=== PATIENT | male | born 2000 | race African-American/Black ===

== ENCOUNTER 2022-08-13 13:05 | Emergency (ER) | payer OTHER, SELFPAY ==
[2022-08-13 13:25] VITALS: BP 125/64; PULSE 82; RESP 20; TEMP 36.8; O2SAT 99; BMI 24.7
--- NOTE | 2022-08-13 13:29 | ED_ITS ---
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. He has been stationed here for almost a year. He has been active duty for several years. He is a E-5. Lives out of town by himself. Is here for evaluation of having both visual and auditory hallucinations and also alcohol abuse. Patient states that he had a walk-in visit this morning with a mental health provider. He carries no spec [facility] mental health diagnosis. Takes no medications. Has not seen a counselor in the past. He went today to speak with somebody because he admits to having an increase in his drinking over the past 3 days. He states he drank 1/2 of a 5th yesterday in an entire 5th the day before that. He states this increase was because his grandfather , his sister had a miscarriage and there was another to a close friend. All this was been within the past couple days. He states that the voices that he is hearing have also increased. He admits that he has heard voices since he entered the but he admits that he did not think much of them. He states that the voices describe ways of using objects around him to try to kill him. He states he has no specific desire to kill himself. He also states that he occasionally sees things. It is worse at night. The things that he sees he describes as people but can not specifically state who that individual is. He denies any other drug use. Denies any other medical problems. Has not tried anything for the symptoms prior to arrival. Related Data Allergies Allergy/AdvReac Type Severity Reaction Status Date / Time No Known Drug Allergies Allergy Verified 08/13/22 13:30 Review of Systems Review of Systems ROS Unobtainable: All systems reviewed & are unremarkable except as noted in HPI and below Patient History Medical History Patient denies medical problems Social History Smoking Status: Never smoker Smoking Status: Never smoker alcohol intake frequency: 3 or more drinks per day Alcohol type: hard liquor Substance Use Type: does not use Exam Initial Vital Signs Initial Vital Signs: Vital Signs Temperature 98.2 F 08/13/22 13:25 Pulse Rate 82 08/13/22 13:25 Respiratory Rate 20 08/13/22 13:25 Blood Pressure 125/64 08/13/22 13:25 Pulse Oximetry 99 08/13/22 13:25 Oxygen Delivery Method 08/13/22 13:25 Const General: cooperative, anxious and No ill appearing HENMT Head: normal to inspection and normocephalic Eyes General: Yes appearance normal, both eyes and all related structures Resp Effort & Inspection: normal respiratory effort Auscultation: clear to auscultation bilaterally Cardio Rate: regular rate Rhythm: regular rhythm GI Inspection: normal to inspection Palpation: soft and No tender Skin General: no rashes or lesions noted Neuro General: patient alert, patient awake, patient oriented x3 and moves all extremities Speech: speech normal Motor: muscle tone normal throughout Extrem General: normal to inspection and capillary refill normal Psych Other: Patient occasionally looks off to the side and looks up and appears to be responding to internal stimuli. He is cooperative. Does have shaking. Is anxious. Not suicidal. Not homicidal. Does admit to auditory and visual hallucinations. Scores GCS Le coma scale eye opening: Spontaneous Le coma scale verbal response: Orientated Le coma scale motor response: Obey commands Howland coma scale total score: 15 Course Orders Ordered: ED Orders 08/13/22 13:32 Consult to FLOOR COVERING INSTALLER - Filtration Operator Stat 08/13/22 14:30 Urine Drug Screen, Rapid Stat 08/13/22 14:35 COVID19 -Nasal RAPID/Pre-Proc Stat 08/13/22 14:45 Acetaminophen Stat Complete Blood Count AUTO DIFF Stat Comprehensive Metabolic Panel Stat Ethanol (ETOH) Stat Lipase Stat Salicylate Stat Thyroid Stimulating Hormone Stat Discontinued Medications Acetaminophen (Acetaminophen 325 Mg Tablet) 650 mg PO NOW ONE Stop: 08/13/22 15:56 Lorazepam (Lorazepam 0.5 Mg Tablet) 1 mg PO NOW ONE Stop: 08/13/22 13:32 Last Admin: 08/13/22 13:50 Dose: 1 mg Documented By: NR Vital Signs Vital signs: Vital Signs - 8 hr 08/13/22 13:25 Temperature 98.2 F Pulse Rate 82 Respiratory Rate 20 Blood Pressure 125/64 Pulse Oximetry 99 Oxygen Delivery Method Room Air MDM - Psych Lab Data Attestation: I reviewed the patient's lab results. Result diagrams: 08/13/22 14:45 08/13/22 14:45 Labs: Lab Results 08/13/22 08/13/22 08/13/22 Range/Units 14:30 14:35 14:45 WBC 5.5 (4.5-11.0) X10^3/uL RBC 5.30 (4.5-5.9) X10^6/uL Hgb 14.1 (13.5-17.5) g/dL Hct 42.9 (41-53) % MCV 80.9 (80-100) fL MCH 26.6 (26-34) PG MCHC 32.9 (30-36) % RDW 13.1 (11.6-14.8) % Plt Count 329 (150-400) X10^3/uL Neut % (Auto) 44.2 L (50-75) % Lymph % (Auto) 42.8 H (25-40) % Jay % (Auto) 9.8 (3-14) % Eos % (Auto) 2.1 (2-4) % Baso % (Auto) 1.1 (0-2) % Neut # (Auto) 2400 (2839-3629) /uL Lymph # (Auto) 2400 (1284-6047) /uL Jay # (Auto) 500 (0-900) /uL Eos # (Auto) 100 (0-450) /uL Baso # (Auto) 100 (0-100) /uL Sodium (137-145) mmol/L Potassium (3.4-5.1) mmol/L Chloride (98-107) mmol/L Carbon Dioxide (22-32) mmol/L BUN (9-20) mg/dL Creatinine (0.66-1.25) mg/dL Estimated GFR (>60) mL/min BUN/Creatinine Ratio (6-22) Glucose (70-100) mg/dL Calcium (8.4-10.2) mg/dL Total Bilirubin (0.2-1.3) mg/dL AST (17-59) IU/L ALT (<50) IU/L Alkaline Phosphatase (38-126) U/L Total Protein (6.3-8.2) g/dL Albumin (3.5-5.0) g/dL Globulin (1.7-4.1) g/dL Albumin/Globulin Ratio (1.0-2.8) Lipase (23-300) U/L TSH (0.47-4.68) uIU/mL Salicylates (<20) mg/dL U Opiates 300ng/mL cut Negative (Negative) Ur Oxycodone Screen Negative (Negative) Urine Methadone Screen Negative (Negative) Acetaminophen (10-30) ug/mL Ur Barbiturates Screen Negative (Negative) U Tricyclic Antidepress Negative (Negative) Ur Phencyclidine Scrn Negative (Negative) Ur Amphetamines Screen Negative (Negative) U Methamphetamines Scrn Negative (Negative) Ur MDMA Scrn (Ecstasy) Negative (Negative) U Benzodiazepines Scrn Negative (Negative) Urine Cocaine Screen Negative (Negative) U Marijuana (THC) Screen Negative (Negative) Ethyl Alcohol ( - 10) mg/dL SARS-CoV-2 (PCR) Negative (Negative) 08/13/22 08/13/22 08/13/22 Range/Units 14:45 14:45 14:45 WBC (4.5-11.0) X10^3/uL RBC (4.5-5.9) X10^6/uL Hgb (13.5-17.5) g/dL Hct (41-53) % MCV (80-100) fL MCH (26-34) PG MCHC (30-36) % RDW (11.6-14.8) % Plt Count (150-400) X10^3/uL Neut % (Auto) (50-75) % Lymph % (Auto) (25-40) % Jay % (Auto) (3-14) % Eos % (Auto) (2-4) % Baso % (Auto) (0-2) % Neut # (Auto) (0583-1146) /uL Lymph # (Auto) (2690-3690) /uL Jay # (Auto) (0-900) /uL Eos # (Auto) (0-450) /uL Baso # (Auto) (0-100) /uL Sodium 138 (137-145) mmol/L Potassium 3.6 (3.4-5.1) mmol/L Chloride 102 (98-107) mmol/L Carbon Dioxide 29 (22-32) mmol/L BUN 10 (9-20) mg/dL Creatinine 0.95 (0.66-1.25) mg/dL Estimated GFR > 60 (>60) mL/min BUN/Creatinine Ratio 10.5 (6-22) Glucose 94 (70-100) mg/dL Calcium 9.0 (8.4-10.2) mg/dL Total Bilirubin 0.5 (0.2-1.3) mg/dL AST 37 (17-59) IU/L ALT 47 (<50) IU/L Alkaline Phosphatase 64 (38-126) U/L Total Protein 7.4 (6.3-8.2) g/dL Albumin 4.2 (3.5-5.0) g/dL Globulin 3.2 (1.7-4.1) g/dL Albumin/Globulin Ratio 1.3 (1.0-2.8) Lipase 77 (23-300) U/L TSH 1.28 (0.47-4.68) uIU/mL Salicylates < 1.0 (<20) mg/dL U Opiates 300ng/mL cut (Negative) Ur Oxycodone Screen (Negative) Urine Methadone Screen (Negative) Acetaminophen < 10 (10-30) ug/mL Ur Barbiturates Screen (Negative) U Tricyclic Antidepress (Negative) Ur Phencyclidine Scrn (Negative) Ur Amphetamines Screen (Negative) U Methamphetamines Scrn (Negative) Ur MDMA Scrn (Ecstasy) (Negative) U Benzodiazepines Scrn (Negative) Urine Cocaine Screen (Negative) U Marijuana (THC) Screen (Negative) Ethyl Alcohol < 10 ( - 10) mg/dL SARS-CoV-2 (PCR) (Negative) [facility] Narrative Medical decision making narrative: Patient admits to both auditory and visual hallucinations however it appears that the auditory hallucinations are more disturbing. They are command hallucinations that do talk about hurting himself. He is had these for a couple years but worsening over the past couple days most likely because of his alcohol intake. He did have some shaking upon arrival. This improved some Ativan. Is given Tylenol for headache. No vomiting. Patient is medically cleared. I do feel that he would benefit from admission to the hospital patient is voluntary. Patient is stable. Discussed the case with Dr. Rincon at [facility] who accepts the patient in transfer. Will transfer by BLS. Discharge Plan Departure Patient Disposition: Xfer Psychiatric Hosp Clinical Impression: Auditory hallucination, Visual hallucinations
[2022-08-13] MEDS: LORazepam 0.5 MG TABLET 1 MG PO (13:50)
[2022-08-13 14:56] LABS: Add Manual Diff / Slide Review NO; Basophils Absolute Auto 100 /uL (0-100); Basophils Percent Auto 1.1 % (0-2); Eosinophils Absolute Auto 100 /uL (0-450); Eosinophils Percent Auto 2.1 % (2-4); Hematocrit 42.9 % (41-53); Hemoglobin 14.1 g/dL (13.5-17.5); Lymphocytes Absolute Auto 2400 /uL (1100-4500); Lymphocytes Percent Auto 42.8 % (25-40); Mean Corpuscular HGB Conc 32.9 % (30-36); Mean Corpuscular Hemoglobin 26.6 PG (26-34); Mean Corpuscular Volume 80.9 fL (80-100); Monocytes Absolute Auto 500 /uL (0-900); Monocytes Percent Auto 9.8 % (3-14); Neutrophils Absolute Auto 2400 /uL (1500-7000); Neutrophils Percent Auto 44.2 % (50-75); Platelet Count 329 X10^3/uL (150-400); Red Cell Distribution Width 13.1 % (11.6-14.8); White Blood Cell Count 5.5 X10^3/uL (4.5-11.0)
[2022-08-13 15:03] LABS: Acetaminophen < 10 ug/mL (10-30); Alanine Aminotransferase 47 IU/L (<50); Albumin 4.2 g/dL (3.5-5.0); Albumin Globulin Ratio 1.3 (1.0-2.8); Alkaline Phosphatase 64 U/L (38-126); Aspartate Aminotransferase 37 IU/L (17-59); BUN Creatinine Ratio 10.5 (6-22); Bilirubin Total 0.5 mg/dL (0.2-1.3); Blood Urea Nitrogen 10 mg/dL (9-20); Carbon Dioxide 29 mmol/L (22-32); Chloride 102 mmol/L (98-107); Estimated Glomerular Filt Rate > 60 mL/min (>60); Globulin 3.2 g/dL (1.7-4.1); Glucose 94 mg/dL (70-100); HEMOLYSIS < 15 (0-50); Potassium 3.6 mmol/L (3.4-5.1); Sodium 138 mmol/L (137-145); Total Protein 7.4 g/dL (6.3-8.2)
[2022-08-13 15:04] LABS: Ethanol (ETOH) < 10 mg/dL; Lipase 77 U/L (23-300); Salicylate < 1.0 mg/dL (<20)
[2022-08-13 15:07] LABS: COVID19 -Nasal RAPID Negative (Negative)
[2022-08-13 15:16] LABS: UR Morphine/Opiate cutoff 300 Negative (Negative); Ur Creatinine Normal (Normal); Ur Specific Gravity Normal (Normal); Urine Amphetamines Negative (Negative); Urine Barbiturates Negative (Negative); Urine Benzodiazepines Negative (Negative); Urine Cocaine Negative (Negative); Urine MDMA Negative (Negative); Urine Methadone Negative (Negative); Urine Methamphetamines Negative (Negative); Urine Oxycodone Negative (Negative); Urine Phencyclidine Negative (Negative); Urine Tetrahydrocannabinol Negative (Negative); Urine Tricyclic Antidepressant Negative (Negative); Urine pH Normal (Normal)
--- NOTE | 2022-08-13 15:55 | CM.SWNOTE ---
Addendum entered by BYRON Fontanez 08/13/22 15:56: Pt is 22 year old male who presents with command auditory hallucinations and alcohol use disorder. 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 Pt reports that the voices happen when he is sober and when under the influence of alcohol. Per pt, voices berate him and at times tell him to hurt himself. Pt states, they are creative about what is around me, like this IV pole could fall and go through my eye or that light figure could fall on me and electrocute me. Pt reports that he does not know how to naturally emote and that he copies what he sees from other people around him. PT reports that he rarely feels genuine emotion. Pt reports that he has no true supports close by, little interest in social interaction, and increasing isolation. Pt reports that he drinks alone. 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 SW and ED Provider discuss recommendation with pt and he eventually agrees to plan. Plan: Initiate transfer to [facility] for inpatient psychiatric stabilization. BYRON Fontanez Original Note: [employer] - Visual Basic Programmer Assessment [employer] - Visual Basic Programmer Assessment Start: 08/13/22 15:09 Freq: Status: Active Protocol: Document 08/13/22 15:09 (Rec: 08/13/22 15:47 TM [id number]) TATTOO ARTIST/Visual Basic Programmer Assessment Time Spent with Patient Start date 08/13/22 Visit Start Time 14:00 End date 08/13/22 Visit End Time 15:00 Mental Health Screening Include Onset, Duration, Intensity Presenting Problem Pt presents with auditory hallucinations that are at times command hallunications telling pt to hurt himself. Pt reports heavy drinking over last 26 days. Generally a fifth of rum a day. Precipitating Event(s) Pt reports the recent of his grandfather and a lot of deaths in the family. Pt reports that his drinking has increased over the last month and he recently gambled away a significant amount of money. Pt states, I drink when I am sad, angry, when I want to quiet the voices, and when I want to forget it all. Current Behavioral Health Provider(s) None. Pt saw behavioral health Include Facility, Provider, Ph. # clinician today at the [facility] and they sent him to this ED. Psych. Hx Mental Health and Chemical Pt reports heavy drinking, Dependency approximately one bottle of hard liquor a day. Pt reports that his drinking has increased since learning of his grandfather's . Pt reports no formal mental health diagnoses but endorses both auditory and visual hallunications. Family Hx of Behavioral Abuse Pt denies family history of mental illness, or suicide attempts. Psychiatric Hospitalizations (date(s)/ Pt denies. location) Psychosocial information & Support none. Systems School/Work Pt is in the [employer]. Pt enlisted at age 17. Substance Abuse Screening Include Onset, Duration, Intensity Presenting Problem Pt drinking approximately one fifth of hard liquor daily for about 26 days. Precipitating Event(s) Pt reports the recent of his grandfather and a lot of deaths in the family. Pt reports that his drinking has increased over the last month and he recently gambled away a significant amount of money. Pt states, I drink when I am sad, angry, when I want to quiet the voices, and when I want to forget it all. Current Behavioral Health Provider(s) none. Include Facility, Provider, Ph. # Family Hx of Behavioral Abuse pt denies. Rehab Facilities? ((Date(s), Location(s) none. ) History of Withdrawal? Seizures? Pt reports history of withdrawals but denies seizures. Pt reports feeling shakey, jumpy, and hyper alert during withdrawals from alcohol. School/Work [employer]. Legal Concerns Legal Matters - Outstanding Issues none.
[2022-08-13 15:56] LABS: Thyroid Stimulating Hormone 1.28 uIU/mL (0.47-4.68)
[2022-08-13 20:18] VITALS: BP 126/81; PULSE 73; RESP 16; TEMP 36.4; O2SAT 100
== END 2022-08-13 20:19 ==
PROVIDERS: Emergency Provider Emergency Medicine
DX: R44.0 Auditory hallucinations (principal); R44.1 Visual hallucinations; Z20.822 Contact with and (suspected) exposure to COVID-19
CPT/HCPCS: 80053; 80305; 80320; 80329; 83690; 84443; 85025; 87635; 99283; C9803; G0480

== ENCOUNTER 2023-04-28 16:47 | Emergency (ER) | payer OTHER, SELFPAY ==
[2023-04-28 16:49] VITALS: BP 133/67; PULSE 85; RESP 18; TEMP 36.9; O2SAT 98; BMI 24.7
[2023-04-28] MEDS: ACETAMINOPHEN 325 MG TABLET 650 MG PO (17:12)
[2023-04-28] MEDS: KETOROLAC 30 MG/ML VIAL IM (17:12)
[2023-04-28 19:15] VITALS: BP 128/79; PULSE 76; RESP 18; O2SAT 100
--- NOTE | 2023-04-28 19:19 | CM.SWNOTE ---
BROADCAST OPERATIONS ENGINEER Assessment BROADCAST OPERATIONS ENGINEER - Fondant Puff Maker Assessment BROADCAST OPERATIONS ENGINEER/Fondant Puff Maker Assessment Time Spent with Patient Start date 04/28/23 Visit Start Time 18:05 End date 04/28/23 Visit End Time 18:45 Total time Care Management spent on 40 minutes patient visit-in minutes Mental Health Screening Include Onset, Duration, Intensity Presenting Problem Patient presents to ED via EMS per recommendation from [facility] provider. Patient has been experiencing increase in Panic attacks, visual and auditory hallucinations, anger and headaches. Patient endorses he sees figments doing terrible things and hears whispers and ruminations of things he could or should do regarding and attacking people. Patient denies HI and SI. Precipitating Event(s) Patient denies any recent precipitating events, and denies any changes. Patient endorses trouble sleeping and eating. Patient endorses his hallucinations have been more intense and he has been vocal about them. Patient Strengths Patient is willing to go to [facility] if he needs to after further discussion with patient. Current Behavioral Health Provider(s) Patient sees psychiatrist and Include Facility, Provider, Ph. # provider through [facility]. BROADCAST OPERATIONS ENGINEER spoke with Lt. Mata who reports that patient is required to go to [facility] due to concern for his auditory and visual hallucinations, change in grooming habits. Psych. Hx Mental Health and Chemical Patient reports he has hx of Dependency Depression, Adjustment Disorder, ASD and possible Schizophrenia. Patient endorses hx is prescribed Prozac, was taking Ambien but was told to discontinue rx and just prescribed Abilify today but has not picked up prescription . Patient endorses that he has not engaged in ETOH or substance use since June 2022. Family Hx of Behavioral Abuse None reported Psychiatric Hospitalizations (date(s)/ Patient was at [facility] in location) July 2022 regarding concern for visual and auditory hallucinations and substance use. Psychosocial information & Support Patient is 23 y/o male who Systems resides alone in [place]. Patient denies any local supports. Patient states he has a big family and has had to adjust to living alone School/Work Patient endorses he is in the [employer]. Legal Concerns Legal Matters - Outstanding Issues None reported Mental Status Orientation (Person/Place/Time) A/Ox4 Stated Mood feeling numb inside Affect (Congruent with Mood?) agitated, full range, congruent with mood Thought Content - Specify/Describe Patient endorses he has been Obsessions, Delusions, Hallucinations experiencing an increase in seeing people loose interpretations, figments, seeing people doing terrible things to people. Patient endorses that he does not like to look at people because he continuously sees these things. Patient endorses he hears whispers, ruminations of things regarding and attacking people. Thought Processes (Xgqfqce-Gudewrka-Ciuu circumstantial Eowxgiio-Qmhubpcq-Gyrfvmkwaz- Lodvvqwmlihudq-Hfulcbn-Bevjbtjdxtxn- Thought Blocking) Speech (Tcnqck-Gaod-Vehlanh-Rapid-Soft- slow/pressured Loud-Pressured) Motor (Eqkikw-Equcbfrtt-Oytf-Other) normal Insight (Jgfq-Aepw-Wdxl/Limited) fair Judgement (Dmom-Vwcv-Kdsf/Limited) fair Impulse Control (Adequate-Impaired) adequate Memory (Esmvdmczc-Fdtcta-Uliznn, intact Impaired-Intact) Concentration (Intact-Impaired) intact Attention (Intact-Impaired) intact Behavior (Appropriate-Inappropriate) appropriate Additional Comment Patient presents as communicative and cooperative Risk Assessment Suicidal Ideation (Plan) No Homicidal Ideation (Plan) No Intervention Intervention BROADCAST OPERATIONS ENGINEER enters room to meet with patient. Present in room is patient's [employer] commanding officer. Patient endorses that he met with Psychiatrist and MH provider and they recommended that he come to ED. Patient endorses that he would prefer not to go to [facility] but later is informed that he is required to go to [facility] and patient is agreeable to do so. Patient denies SI and HI. Patient endorses significant increase in hallucinations, headaches, difficulty with sleep and eating. Patient endorses concern that his current rx has lost its efficacy. Patient endorses concern for the unknown at [facility] and endorses that he would prefer to be discharged before the weekend as patient has plans for social activities that are conducive to his self care and mental health. BROADCAST OPERATIONS ENGINEER to request acceptance to [facility] as his commanding officer and lieutenant are requiring him to do so. BROADCAST OPERATIONS ENGINEER reviews the above with ED provider who indicates agreement and understanding. Plan RA Plan BROADCAST OPERATIONS ENGINEER to seek placement for patient and [facility] upon medical clearance. ALDAIR HobbsSW
[2023-04-28 19:20] LABS: COVID19 -Nasal RAPID Negative (Negative)
[2023-04-28 19:21] LABS: Add Manual Diff / Slide Review NO; Basophils Absolute Auto 0 /uL (0-100); Basophils Percent Auto 0.8 % (0-2); Eosinophils Absolute Auto 100 /uL (0-450); Eosinophils Percent Auto 1.2 % (2-4); Hematocrit 42.3 % (41-53); Hemoglobin 14.2 g/dL (13.5-17.5); Lymphocytes Absolute Auto 2300 /uL (1100-4500); Lymphocytes Percent Auto 38.5 % (25-40); Mean Corpuscular HGB Conc 33.7 % (30-36); Mean Corpuscular Hemoglobin 26.5 PG (26-34); Mean Corpuscular Volume 78.8 fL (80-100); Monocytes Absolute Auto 500 /uL (0-900); Neutrophils Absolute Auto 3100 /uL (1500-7000); Neutrophils Percent Auto 50.5 % (50-75); Platelet Count 290 X10^3/uL (150-400); Red Blood Cell Count 5.37 X10^6/uL (4.5-5.9); Red Cell Distribution Width 12.6 % (11.6-14.8)
[2023-04-28 19:29] LABS: Alanine Aminotransferase 24 IU/L (<50); Albumin 4.7 g/dL (3.5-5.0); Albumin Globulin Ratio 1.4 (1.0-2.8); Alkaline Phosphatase 67 U/L (38-126); Aspartate Aminotransferase 27 IU/L (17-59); BUN Creatinine Ratio 12.4 (6-22); Blood Urea Nitrogen 13 mg/dL (9-20); Calcium 9.2 mg/dL (8.4-10.2); Carbon Dioxide 29 mmol/L (22-32); Chloride 100 mmol/L (98-107); Estimated Glomerular Filt Rate > 60 mL/min (>60); Ethanol (ETOH) < 10 mg/dL; Globulin 3.4 g/dL (1.7-4.1); Glucose 95 mg/dL (70-100); HEMOLYSIS < 15 (0-50); Potassium 3.7 mmol/L (3.4-5.1); Sodium 137 mmol/L (137-145); Total Protein 8.1 g/dL (6.3-8.2)
[2023-04-28 19:30] LABS: Ictotest Urine Negative (Negative)
[2023-04-28 19:33] LABS: UR Morphine/Opiate cutoff 300 Negative (Negative); Ur Creatinine Normal (Normal); Ur Specific Gravity Normal (Normal); Urine Amphetamines Negative (Negative); Urine Barbiturates Negative (Negative); Urine Benzodiazepines Negative (Negative); Urine Cocaine Negative (Negative); Urine MDMA Negative (Negative); Urine Methadone Negative (Negative); Urine Methamphetamines Negative (Negative); Urine Oxycodone Negative (Negative); Urine Phencyclidine Negative (Negative); Urine Tetrahydrocannabinol Negative (Negative); Urine Tricyclic Antidepressant Negative (Negative); Urine pH Normal (Normal)
[2023-04-28 19:43] LABS: Bacteria Urine Occasional (0-1); Culture Indicated Urine Specimen Cultured; Mucus Urine 3+ (Negative); RBC Urine None Seen (0-5/HPF); Squamous Epithelial Cell Urine 0-1 /HPF (0-5/HPF); WBC Urine 1-5/HPF (0-5/HPF)
--- NOTE | 2023-04-28 19:50 | ED.HA ---
HPI - Headache General Chief Complaint: Headache Stated Complaint: Psych, headache Time Seen by Provider: 04/28/23 17:43 Mode of arrival: EMS History of Present Illness HPI Narrative: patient is a 23-year-old male who is having increased hallucinations sent here by for evaluation. He reports that he is previously been hospitalized at [facility] for mental health. He is hearing voices he is having blurry vision he is feeling very angry a lot sutured at the. He denies suicidal or homicidal ideations. He apparently has been diagnosed with mental health in [place] but records in transfer. He is on Ambien and Prozac which is not helping. He feels like he is having escalating symptoms.. Denies any family history of mental illness. Related Data Allergies Allergy/AdvReac Type Severity Reaction Status Date / Time No Known Drug Allergies Allergy Verified 08/13/22 13:30 Review of Systems Review of Systems ROS Unobtainable: All systems reviewed & are unremarkable except as noted in HPI and below Patient History Medical History Patient denies medical problems Social History Smoking Status: Never smoker Smoking Status: Never smoker alcohol intake frequency: 3 or more drinks per day Alcohol type: hard liquor Substance Use Type: does not use Exam Initial Vital Signs Initial Vital Signs: Vital Signs Temperature 98.5 F 04/28/23 16:49 Pulse Rate 85 04/28/23 16:49 Respiratory Rate 18 04/28/23 16:49 Blood Pressure 133/67 04/28/23 16:49 Pulse Oximetry 98 04/28/23 16:49 Oxygen Delivery Method Room Air 04/28/23 16:49 GENERAL: Alert 23-year-old male good eye contact appears frustrated CARDIOVASCULAR: peripheral pulses in tact, cap refill <2 sec RESPIRATORY: No respiratory distress, speaks in full sentences without difficulty EXTREMITIES: Normal range of motion, no clubbing or edema. Neurovascularly intact NEUROLOGICAL: Cranial nerves II through XII grossly intact. Normal gait and speech. SKIN: Warm, dry, no petechiae, no rashes or lesions. Psych Appearance: grossly normal Speech and Movement: agitated and speech clear Mood: anxious mood Affect: anxious affect Attitude: cooperative Thought Process: normal Thought Content: normal Judgment: fair Course Orders Ordered: Discontinued Medications Acetaminophen (Acetaminophen 325 Mg Tablet) 650 mg PO NOW ONE Stop: 04/28/23 17:07 Last Admin: 04/28/23 17:12 Dose: 650 mg Documented By: AMV Ketorolac Tromethamine (Ketorolac 30 Mg/Ml Vial) 30 mg IM NOW ONE Stop: 04/28/23 17:07 Last Admin: 04/28/23 17:12 Dose: 30 mg Documented By: AMV Lorazepam (Lorazepam 0.5 Mg Tablet) 1 mg PO NOW ONE Stop: 04/28/23 20:17 Last Admin: 04/28/23 20:24 Dose: 1 mg Documented By: HNG Vital Signs Vital signs: Vital Signs - 8 hr 04/28/23 23:25 Temperature 97.7 F Pulse Rate 67 Respiratory Rate 18 Blood Pressure 121/67 Pulse Oximetry 96 Oxygen Delivery Method Room Air MDM - Headache Lab Data 04/28/23 19:11 04/28/23 19:11 Labs: Lab Results 04/28/23 04/28/23 04/28/23 Range/Units 19:00 19:11 19:11 WBC 6.0 (4.5-11.0) X10^3/uL RBC 5.37 (4.5-5.9) X10^6/uL Hgb 14.2 (13.5-17.5) g/dL Hct 42.3 (41-53) % MCV 78.8 L (80-100) fL MCH 26.5 (26-34) PG MCHC 33.7 (30-36) % RDW 12.6 (11.6-14.8) % Plt Count 290 (150-400) X10^3/uL Neut % (Auto) 50.5 (50-75) % Lymph % (Auto) 38.5 (25-40) % [place] % (Auto) 9.0 (3-14) % Eos % (Auto) 1.2 L (2-4) % Baso % (Auto) 0.8 (0-2) % Neut # (Auto) 3100 (0763-1168) /uL Lymph # (Auto) 2300 (8367-5722) /uL [place] # (Auto) 500 (0-900) /uL Eos # (Auto) 100 (0-450) /uL Baso # (Auto) 0 (0-100) /uL Sodium 137 (137-145) mmol/L Potassium 3.7 (3.4-5.1) mmol/L Chloride 100 (98-107) mmol/L Carbon Dioxide 29 (22-32) mmol/L BUN 13 (9-20) mg/dL Creatinine 1.05 (0.66-1.25) mg/dL Estimated GFR > 60 (>60) mL/min BUN/Creatinine Ratio 12.4 (6-22) Glucose 95 (70-100) mg/dL Calcium 9.2 (8.4-10.2) mg/dL Total Bilirubin 1.0 (0.2-1.3) mg/dL AST 27 (17-59) IU/L ALT 24 (<50) IU/L Alkaline Phosphatase 67 (38-126) U/L Total Protein 8.1 (6.3-8.2) g/dL Albumin 4.7 (3.5-5.0) g/dL Globulin 3.4 (1.7-4.1) g/dL Albumin/Globulin Ratio 1.4 (1.0-2.8) TSH (0.47-4.68) uIU/mL Ur Bilirubin Confirm (Negative) Urine RBC (0-5/HPF) Urine WBC (0-5/HPF) Ur Squamous Epith Cells (0-5/HPF) Urine Bacteria (None) Urine Mucus (Negative) Ur Culture Indicated? U Opiates 300ng/mL cut (Negative) Ur Oxycodone Screen (Negative) Urine Methadone Screen (Negative) Ur Barbiturates Screen (Negative) U Tricyclic Antidepress (Negative) Ur Phencyclidine Scrn (Negative) Ur Amphetamines Screen (Negative) U Methamphetamines Scrn (Negative) Ur MDMA Scrn (Ecstasy) (Negative) U Benzodiazepines Scrn (Negative) Urine Cocaine Screen (Negative) U Marijuana (THC) Screen (Negative) Ethyl Alcohol < 10 ( - 10) mg/dL SARS-CoV-2 (PCR) Negative (Negative) 04/28/23 04/28/23 04/28/23 Range/Units 19:11 19:15 19:15 WBC (4.5-11.0) X10^3/uL RBC (4.5-5.9) X10^6/uL Hgb (13.5-17.5) g/dL Hct (41-53) % MCV (80-100) fL MCH (26-34) PG MCHC (30-36) % RDW (11.6-14.8) % Plt Count (150-400) X10^3/uL Neut % (Auto) (50-75) % Lymph % (Auto) (25-40) % [place] % (Auto) (3-14) % Eos % (Auto) (2-4) % Baso % (Auto) (0-2) % Neut # (Auto) (6235-2796) /uL Lymph # (Auto) (0941-8435) /uL [place] # (Auto) (0-900) /uL Eos # (Auto) (0-450) /uL Baso # (Auto) (0-100) /uL Sodium (137-145) mmol/L Potassium (3.4-5.1) mmol/L Chloride (98-107) mmol/L Carbon Dioxide (22-32) mmol/L BUN (9-20) mg/dL Creatinine (0.66-1.25) mg/dL Estimated GFR (>60) mL/min BUN/Creatinine Ratio (6-22) Glucose (70-100) mg/dL Calcium (8.4-10.2) mg/dL Total Bilirubin (0.2-1.3) mg/dL AST (17-59) IU/L ALT (<50) IU/L Alkaline Phosphatase (38-126) U/L Total Protein (6.3-8.2) g/dL Albumin (3.5-5.0) g/dL Globulin (1.7-4.1) g/dL Albumin/Globulin Ratio (1.0-2.8) TSH 2.16 (0.47-4.68) uIU/mL Ur Bilirubin Confirm Negative (Negative) Urine RBC (0-5/HPF) Urine WBC (0-5/HPF) Ur Squamous Epith Cells (0-5/HPF) Urine Bacteria (None) Urine Mucus (Negative) Ur Culture Indicated? U Opiates 300ng/mL cut Negative (Negative) Ur Oxycodone Screen Negative (Negative) Urine Methadone Screen Negative (Negative) Ur Barbiturates Screen Negative (Negative) U Tricyclic Antidepress Negative (Negative) Ur Phencyclidine Scrn Negative (Negative) Ur Amphetamines Screen Negative (Negative) U Methamphetamines Scrn Negative (Negative) Ur MDMA Scrn (Ecstasy) Negative (Negative) U Benzodiazepines Scrn Negative (Negative) Urine Cocaine Screen Negative (Negative) U Marijuana (THC) Screen Negative (Negative) Ethyl Alcohol ( - 10) mg/dL SARS-CoV-2 (PCR) (Negative) 04/28/23 Range/Units 19:30 WBC (4.5-11.0) X10^3/uL RBC (4.5-5.9) X10^6/uL Hgb (13.5-17.5) g/dL Hct (41-53) % MCV (80-100) fL MCH (26-34) PG MCHC (30-36) % RDW (11.6-14.8) % Plt Count (150-400) X10^3/uL Neut % (Auto) (50-75) % Lymph % (Auto) (25-40) % [place] % (Auto) (3-14) % Eos % (Auto) (2-4) % Baso % (Auto) (0-2) % Neut # (Auto) (3250-5595) /uL Lymph # (Auto) (1864-5323) /uL [place] # (Auto) (0-900) /uL Eos # (Auto) (0-450) /uL Baso # (Auto) (0-100) /uL Sodium (137-145) mmol/L Potassium (3.4-5.1) mmol/L Chloride (98-107) mmol/L Carbon Dioxide (22-32) mmol/L BUN (9-20) mg/dL Creatinine (0.66-1.25) mg/dL Estimated GFR (>60) mL/min BUN/Creatinine Ratio (6-22) Glucose (70-100) mg/dL Calcium (8.4-10.2) mg/dL Total Bilirubin (0.2-1.3) mg/dL AST (17-59) IU/L ALT (<50) IU/L Alkaline Phosphatase (38-126) U/L Total Protein (6.3-8.2) g/dL Albumin (3.5-5.0) g/dL Globulin (1.7-4.1) g/dL Albumin/Globulin Ratio (1.0-2.8) TSH (0.47-4.68) uIU/mL Ur Bilirubin Confirm (Negative) Urine RBC None seen (0-5/HPF) Urine WBC 1-5/hpf (0-5/HPF) Ur Squamous Epith Cells 0-1 /hpf (0-5/HPF) Urine Bacteria Occasional (0-1) (None) Urine Mucus 3+ H (Negative) Ur Culture Indicated? Specimen cultured U Opiates 300ng/mL cut (Negative) Ur Oxycodone Screen (Negative) Urine Methadone Screen (Negative) Ur Barbiturates Screen (Negative) U Tricyclic Antidepress (Negative) Ur Phencyclidine Scrn (Negative) Ur Amphetamines Screen (Negative) U Methamphetamines Scrn (Negative) Ur MDMA Scrn (Ecstasy) (Negative) U Benzodiazepines Scrn (Negative) Urine Cocaine Screen (Negative) U Marijuana (THC) Screen (Negative) Ethyl Alcohol ( - 10) mg/dL SARS-CoV-2 (PCR) (Negative) Urine Dip Bedside Urine Glucose Negative Bedside Urine Bilirubin + 1 Bedside Urine Ketone +/- 5 Urine Specific [place] 1.015 Bedside Urine Occult Blood - Negative Bedside Urine pH 7 Bedside Urine Protein +/- 15 Bedside Urine Urobilinogen - Negative Bedside Urine Nitrite - Negative Bedside Urine Leukocytes +/- 15 Esterase MDM Narrative Medical decision making narrative: Patient accepted at [facility] by Dr. Carlton. Have spoken to her myself. Patient denying SI and facial but having worsening hallucinations is voluntary for placement at this time. Blood work has been reviewed there is no clinical significant abnormality. Discharge Plan Departure Patient Disposition: Xfer Psychiatric Hosp Clinical Impression: Acute psychosis
[2023-04-28] MEDS: LORazepam 0.5 MG TABLET 1 MG PO (20:24)
[2023-04-28 20:36] LABS: TSH w/ Reflex to FT4 2.16 uIU/mL (0.47-4.68)
[2023-04-28 21:30] VITALS: BP 135/57; PULSE 78; RESP 18; TEMP 36.8
[2023-04-28 23:25] VITALS: BP 121/67; PULSE 67; RESP 18; TEMP 36.5; O2SAT 96
== END 2023-04-28 23:51 ==
PROVIDERS: Emergency Medicine; Emergency Provider Emergency Medicine
DX: F23 Brief psychotic disorder (principal); Z20.822 Contact with and (suspected) exposure to COVID-19
CPT/HCPCS: 36415; 80053; 80305; 80320; 81003; 81015; 84443; 85025; 87086; 87635; 96372; 99284; C9803; J1885